=== PATIENT | female | born 1995 | race Asian ===

== ENCOUNTER 2016-12-23 23:09 | Emergency (ER) | payer OTHER ==
[~2016-12-23] VITALS: Ht 157.5 cm; Wt 51.1 kg
[2016-12-23 23:10] VITALS: BP 156/80
== END 2016-12-24 00:08 | disposition home or self-care (01) ==
LOC: ED 12-24 00:04
DX: S01.112A Laceration without foreign body of left eyelid and periocular area, initial encounter (principal); W19.XXXA Unspecified fall, initial encounter; Y93.89 Activity, other specified; Y99.8 Other external cause status; Y92.488 Other paved roadways as the place of occurrence of the external cause
CPT/HCPCS: 12011; 99283